=== PATIENT | male | born 1995 | race African-American/Black ===

== ENCOUNTER 2017-01-17 17:04 | Emergency (ER) | payer OTHER ==
--- NOTE | 2017-01-17 17:45 | RAD ---
PORTABLE CHEST: 01/17/17 HISTORY: Cough. COMPARISON: Comparison made to a PA chest 04/04/14. No definite infiltrate identified. There is some questionable increased density in the right suprahil ar region when compared to the prior study although this is poorly evaluated on this portable project ion. The heart and mediastinum otherwise appear unremarkable. IMPRESSION: No definite infiltrate although questioned increased density in the right suprahilar region. If there is concern of pneumonia in the right lung, recommend upright PA and lateral views of chest to better evaluate. POS: [facility]
--- NOTE | 2017-01-17 18:23 | RAD ---
TWO VIEW CHEST: 01/17/17 HISTORY: Congestion. Evaluate for pneumonia. COMPARISON: 04/04/14. Lung noonan are well aerated and are clear of infiltrate. Heart and mediastinum unremarkable. Deformity of the right clavicle is noted. This has occurred since prior exam and represents an old he aled fracture. IMPRESSION: No evidence of infiltrate identified. POS: [facility]
== END 2017-01-17 18:39 | disposition home or self-care (01) ==
LOC: ERS 17:04
DX: J20.9 Acute bronchitis, unspecified (principal); F17.210 Nicotine dependence, cigarettes, uncomplicated
CPT/HCPCS: 71010; 71020; 99406

== ENCOUNTER 2017-02-27 23:33 | Emergency (ER) | payer OTHER ==
[2017-02-28] MEDS ORDERED: Ibuprofen 800 MG TAB ONE (03:57)
== END 2017-02-28 04:02 | disposition home or self-care (01) ==
LOC: ERS 23:33
DX: M62.830 Muscle spasm of back (principal); F17.210 Nicotine dependence, cigarettes, uncomplicated
CPT/HCPCS: 99283

== ENCOUNTER 2017-08-26 15:23 | Emergency (ER) | payer OTHER | END 2017-08-26 16:21 | disposition home or self-care (01) | LOC: ERS 15:23 | DX: G56.03 Carpal tunnel syndrome, bilateral upper limbs (principal); F17.210 Nicotine dependence, cigarettes, uncomplicated | CPT/HCPCS: 99283 ==

== ENCOUNTER 2017-09-03 19:50 | Emergency (ER) | payer OTHER | END 2017-09-03 20:24 | disposition home or self-care (01) | LOC: ERS 19:50 | DX: G56.02 Carpal tunnel syndrome, left upper limb (principal); F17.210 Nicotine dependence, cigarettes, uncomplicated; F20.9 Schizophrenia, unspecified ==

== ENCOUNTER 2019-04-11 21:23 | Emergency (ER) | payer BC, MEDICARE, OTHER ==
[2019-04-11] MEDS ORDERED: Ketorolac Tromethamine 60 MG/2 ML VIAL ONE (21:36)
== END 2019-04-11 21:43 | disposition home or self-care (01) ==
LOC: ERS 21:23
DX: M25.511 Pain in right shoulder (principal); F20.9 Schizophrenia, unspecified; F17.210 Nicotine dependence, cigarettes, uncomplicated
CPT/HCPCS: 96372; 99283; J1885

== ENCOUNTER 2020-08-10 10:49 | Emergency (ER) | payer MEDICARE ==
[2020-08-10] MEDS ORDERED: Ketorolac Tromethamine 30 MG/ML VIAL ONE (13:49)
[2020-08-10] MEDS ORDERED: Dexamethasone 10 MG/ML VIAL ONE (13:49)
[2020-08-10] MEDS ORDERED: HYDROcodone/Acetaminophen 5/325 mg Tablet ONE (14:25)
== END 2020-08-10 14:45 | disposition home or self-care (01) ==
LOC: ERS 10:49
DX: M54.41 Lumbago with sciatica, right side (principal); F17.210 Nicotine dependence, cigarettes, uncomplicated
CPT/HCPCS: 96372; 99283; J1100; J1885